=== PATIENT | female | born 1930 | race Caucasian/White ===

== ENCOUNTER 2018-01-23 21:34 | Inpatient (IN) | payer MEDICARE ==
[~2018-01-23] VITALS: Ht 162.6 cm; Wt 50.0 kg
--- NOTE | ~2018-01-23 | PN ---
PATIENT:MARCE HASSAN MEDICAL RECORD: [id number] LOCATION:TIARRA WernerJosé ManuelTim ADMISSION DATE: 01/24/18 PROGRESS NOTE DATE OF SERVICE: 02/01/2018 SUBJECTIVE: The patient's case was discussed with staff. She has no new complaint. OBJECTIVE: The patient is in good behavioral control with limited insight about her condition. She does tolerate her medicines well. ASSESSMENT: No change in diagnoses. PLAN: The patient slept 11 hours last night. I am going to hold her trazodone or rather discontinue it since clearly she is sleeping more than I would like. She does not appear sleepy today. Her long-term prognosis is guarded. TRANSINT:[id number] Voice Confirmation ID: [id number] DOCUMENT ID: [id number] ANKIT DIAZ MD at 1203 CC: [id number] DICTATION DATE: 02/01/18 1332 BEFORE AND AFTER SCHOOL DAYCARE WORKER: 02/01/18 1355 ADM IN [place] [id number] [place] [address]
--- NOTE | ~2018-01-23 | PN ---
PATIENT:MARCE HASSAN MEDICAL RECORD: [id number] LOCATION:TIARRA Amin112 ADMISSION DATE: 01/24/18 PROGRESS NOTE DATE OF SERVICE: 02/07/2018 SUBJECTIVE: The patient's case was discussed with staff. She has no new complaint. OBJECTIVE: The patient is in good behavioral control with limited insight about her condition. She tolerates her medicines well. ASSESSMENT: No change in diagnoses. PLAN: Supportive and educational interventions were made. Fci prognosis is guarded. I anticipate she can be transitioned out of the hospital soon if this level of improvement is maintained. TRANSINT:[id number] Voice Confirmation ID: [id number] DOCUMENT ID: [id number] ANKIT DIAZ MD at 1244 CC: [id number] DICTATION DATE: 02/07/18 1306 FRUIT LOADER: 02/07/18 1312 ADM IN [facility] [address] [place] [id number]
--- NOTE | ~2018-01-23 | PN ---
PATIENT:MARCE HASSAN MEDICAL RECORD: [id number] LOCATION:TIARRA WernerJosé Manuel112 ADMISSION DATE: 01/24/18 PROGRESS NOTE DATE OF SERVICE: 02/02/2018 SUBJECTIVE: No new complaint is offered. OBJECTIVE: The patient has continued to do well. She is much more affable and engaged with staff and with other patients. On exam, mood is euthymic. Affect is appropriate and cordial. Speech is somewhat tangential. Content of thought is negative for overt psychosis. Sensorium is unchanged. ASSESSMENT: No change in diagnosis. PLAN: 1. Continue all current medication. 2. Continue supportive therapy. TRANSINT:[id number] Voice Confirmation ID: [id number] DOCUMENT ID: [id number] ALFONSO NAJERA III, MD at 0530 CC: [id number] DICTATION DATE: 02/02/18 1152 INVESTIGATION OFFICER: 02/02/18 1258 ADM IN [facility] [address] [place] [address]
--- NOTE | ~2018-01-23 | PN ---
PATIENT:MARCE HASSAN MEDICAL RECORD: [id number] LOCATION:TIARRA Amin112 ADMISSION DATE: 01/24/18 PROGRESS NOTE DATE OF SERVICE: 01/29/2018 SUBJECTIVE: The patient's case was discussed with staff. She has no new complaint. OBJECTIVE: The patient is in good behavioral control with limited insight about her condition. She generally tolerates her medicines well. Eye contact is poor. Concentration is poor. ASSESSMENT: Senile dementia of the Alzheimer's type with behavioral disturbances. PLAN: The patient will have her trazodone reduced slightly. She is sleeping adequately and I think part of her difficulties with sleep were related to the lack of a good schedule. In addition to this, I am going to treat her with a low dose of Namenda for its memory enhancing properties. Her long-term prognosis is guarded. TRANSINT:[id number] Voice Confirmation ID: [id number] DOCUMENT ID: [id number] ANKIT DIAZ MD at 1509 CC: [id number] DICTATION DATE: 01/29/18 1346 LAB CLERK: 01/29/18 1514 ADM IN [place] [address] [place] [id number]
--- NOTE | ~2018-01-23 | PN ---
PATIENT:MARCE HASSAN MEDICAL RECORD: [id number] LOCATION:AlphonsoJosé ManuelJENISE Amin112 ADMISSION DATE: 01/24/18 PROGRESS NOTE DATE OF SERVICE: 01/25/2018 SUBJECTIVE: The patient's case was discussed with staff. She has no new complaint. OBJECTIVE: The patient was quite agitated last night and required p.r.n. medication. She is not eating very well. ASSESSMENT: No change in diagnoses. PLAN: I am going to taper the patient off her Celexa. I am going to reduce the dose to 10 mg a day today and in a couple of days will just discontinue. I am unsure if I am going to start her on another antidepressant, but it certainly is possible. For her agitated behavior, I am going to start her on a low dose of Trilafon, which will also assist with her thought disorganization. Both supportive and educational interventions have been made. Her long-term prognosis is guarded. TRANSINT:[id number] Voice Confirmation ID: [id number] DOCUMENT ID: [id number] ANKIT DIAZ MD at 0927 CC: [id number] DICTATION DATE: 01/25/18 1207 WASH HELPER: 01/25/18 1505 ADM IN [place] [id number] [place] [address]
--- NOTE | ~2018-01-23 | DS ---
PATIENT:MARCE HASSAN :[birth year] MEDICAL RECORD: [id number] DISCHARGE SUMMARY ADMISSION DATE: 01/24/18 DISCHARGE DATE: 02/14/18 IDENTIFYING DATA: The patient is 87 years old and she was admitted to the hospital on a voluntary basis secondary to confusion. The patient lives in a local fci where she has been paranoid and delusional along with confused. She had little or no recollection of this and frankly was not providing much in the way of useful history, but it was clear that this was not deliberated, she was just confused. She had been accusing others of hitting her and yelling at her. There was no evidence of this and there was nothing specific that could be addressed. She apparently had been wandering into other rooms at the fci and had a number of bizarre delusions regarding the nursing staff and children. She was quite agitated and displayed a high degree of distress with no specific details that could be addressed. HOSPITAL COURSE: The patient was admitted to the hospital and fully evaluated from both a medical, psychological, and social standpoint. She was treated with memory enhancing and mood stabilizing as well as low dose of an antipsychotic medication. She did show improvement through the course of the hospitalization, was much calmer, but not sedated. She was not delusional, but there was no change in her level of cognitive impairment. She was subsequently transitioned back to the fci. DISCHARGE DIAGNOSES: AXIS I: Senile dementia of the Alzheimer's type with behavioral disturbances. AXIS II: None. AXIS III: Hypertension, cardiac arrhythmia, hyperlipidemia, hypothyroidism, history of colon cancer and hypertension. AXIS IV: Moderate stressors. AXIS V: Global assessment of functioning is 30. PLAN: At the time of discharge, the patient was in good behavioral control and had no evidence of acute or direct dangerousness to herself or others. She was tolerating her medications well. Followup is to be with her primary care fci physician. TRANSINT:[id number] Voice Confirmation ID: [id number] DOCUMENT ID: [id number] ANKIT DIAZ MD at 1312 CC: [id number] DICTATION DATE: 03/08/18 1346 RIVET MACHINE OPERATOR: 03/08/18 1433 DIS IN 02/14/18 [place] [id number] [place], [place] [id number]
--- NOTE | ~2018-01-23 | PN ---
PATIENT:MARCE HASSAN MEDICAL RECORD: [id number] LOCATION:TIARRA WernerJosé ManuelTim ADMISSION DATE: 01/24/18 PROGRESS NOTE DATE OF SERVICE: 02/06/2018 SUBJECTIVE: The patient's case was discussed with staff. She has no new complaint. OBJECTIVE: The patient is partially oriented. She has been fairly agitated today but not openly aggressive. The agitation apparently has something to do with her believing that people are trying to steal her money. There is no real evidence to this effect, and when evidence is given that would contradict her conclusion, she becomes angry. ASSESSMENT: No change in diagnoses. PLAN: The patient has worsened in the past 2 days. I am going to increase her dose of Trilafon, which she is being used to treat her underlying delusional, psychotic symptoms. Her long-term prognosis is guarded. TRANSINT:[id number] Voice Confirmation ID: [id number] DOCUMENT ID: [id number] ANKIT DIAZ MD at 1301 CC: [id number] DICTATION DATE: 02/06/18 1328 SHELLFISH SORTER: 02/06/18 1352 ADM IN [facility] [address] [place] [address]
--- NOTE | ~2018-01-23 | PN ---
PATIENT:MARCE HASSAN MEDICAL RECORD: [id number] LOCATION:TIARRA Amin112 ADMISSION DATE: 01/24/18 PROGRESS NOTE DATE OF SERVICE: 02/14/2018 SUBJECTIVE: The patient's case was discussed with staff. She has no new complaint. OBJECTIVE: The patient is in good behavioral control with limited insight about her condition. She tolerates her medicines well. Eye contact is fair. ASSESSMENT: No change in diagnoses. PLAN: Brief supportive and educational interventions were made. Long-term prognosis is guarded. TRANSINT:[id number] Voice Confirmation ID: [id number] DOCUMENT ID: [id number] ANKIT DIAZ MD at 1332 CC: [id number] DICTATION DATE: 02/14/18 1247 NURSING TECHNICIAN: 02/14/18 1354 DIS IN 02/14/18 [facility] [address] [place] [address]
--- NOTE | ~2018-01-23 | PN ---
PATIENT:MARCE HASSAN MEDICAL RECORD: [id number] LOCATION:TIARRA AminTim ADMISSION DATE: 01/24/18 PROGRESS NOTE DATE OF SERVICE: 01/27/2018 SUBJECTIVE: The patient's case was discussed with staff. She has no new complaint. OBJECTIVE: The patient is in good behavioral control with limited insight about her condition. She has not been actively aggressive. ASSESSMENT: No change in diagnoses. PLAN: Current medicines have been reviewed and will be maintained. Her Celexa is going to be discontinued secondary to a concern about potential side effects. I am going to start her on a low dose of Trilafon, a low dose of trazodone to assist with sleep consolidation. TRANSINT:[id number] Voice Confirmation ID: [id number] DOCUMENT ID: [id number] ANKIT DIAZ MD at 1341 CC: [id number] DICTATION DATE: 01/27/18 0930 POLYMER MATERIALS CONSULTANT: 01/27/18 1443 ADM IN [place] [id number] [place] [address]
--- NOTE | ~2018-01-23 | PN ---
PATIENT:MARCE HASSAN MEDICAL RECORD: [id number] LOCATION:TIARRA AminTim ADMISSION DATE: 01/24/18 PROGRESS NOTE DATE OF SERVICE: 02/08/2018 SUBJECTIVE: The patient's case was discussed with staff. She has no new complaint. OBJECTIVE: The patient is in good behavioral control with limited insight about her condition. She generally tolerates her medicines well. ASSESSMENT: No change in diagnoses. PLAN: Current medicines and therapies have been reviewed and will be maintained. Long-term prognosis is guarded. TRANSINT:[id number] Voice Confirmation ID: [id number] DOCUMENT ID: [id number] ANKIT DIAZ MD at 1159 CC: [id number] DICTATION DATE: 02/08/18 1253 DEAF INTERPRETER: 02/08/18 1258 ADM IN [place] [address] [place] [address]
--- NOTE | ~2018-01-23 | PN ---
PATIENT:MARCE HASSAN MEDICAL RECORD: [id number] LOCATION:TIARRA WernerJosé ManuelTim ADMISSION DATE: 01/24/18 PROGRESS NOTE DATE OF SERVICE: 02/10/2018 SUBJECTIVE: The patient's case was discussed with staff. She has no new complaint. OBJECTIVE: The patient is in good behavioral control with limited insight about her condition. She tolerates her medicines well. Eye contact is fair. ASSESSMENT: No change in diagnoses. PLAN: The patient had a little bit of anxiety and has been worried at times. I am going to observe this a little bit. I am reluctant to start her on any kind of an anxiolytic medication. I do anticipate that if additional pharmacologic therapy is decided against that she would be ready and appropriate for discharge in a couple of days. TRANSINT:[id number] Voice Confirmation ID: [id number] DOCUMENT ID: [id number] ANKIT DIAZ MD at 1101 CC: [id number] DICTATION DATE: 02/10/18 1139 CLAY DRY PRESS MIXER OPERATOR: 02/10/18 2250 ADM IN [place] [address] [place] [address]
--- NOTE | ~2018-01-23 | PN ---
PATIENT:MARCE HASSAN MEDICAL RECORD: [id number] LOCATION:TIARRA WernerJosé Manuel112 ADMISSION DATE: 01/24/18 PROGRESS NOTE DATE OF SERVICE: 02/11/2018 SUBJECTIVE: The patient's case was discussed with staff. She has no new complaint. OBJECTIVE: The patient denies intent to harm herself or others. She generally tolerates her medicines well. She has had some paranoid delusional thought content, which she does not display to me during my brief interaction. ASSESSMENT: No change in diagnoses. PLAN: The patient may well be worsening. The acute change, which I think is reliably reported of course, is possibly due to a urinary tract infection. I plan to order a urinalysis and observe the patient. I had anticipated transitioning her out of the hospital tomorrow, but I think I will delay that by at least 24 hours. TRANSINT:[id number] Voice Confirmation ID: [id number] DOCUMENT ID: [id number] ANKIT DIAZ MD at 1406 CC: [id number] DICTATION DATE: 02/11/18 1125 COLD MEAT COOK: 02/11/18 1432 ADM IN [facility] [address] [place] [address]
--- NOTE | ~2018-01-23 | PSY ---
PATIENT NAME:MARCE HASSAN MEDICAL RECORD: [id number] : [birth year] LOCATION:TIARRA Armstrong3 ADMISSION DATE: 01/24/18 ACCOUNT: [id number] PSYCHIATRIC EVALUATION DATE OF EVALUATION: 01/24/18 IDENTIFYING DATA: The patient is 87 years old and she is admitted to the hospital on a voluntary basis. CHIEF COMPLAINT: Confusion. HISTORY OF PRESENT ILLNESS: The patient lives in a local assisted. Apparently, she has been quite confused, paranoid, and even delusional. The patient has little or no recollection of this and frankly is not very useful in providing history that is helpful. She apparently is accusing others of hitting her and then yelling. She is wandering into other rooms. She has a number of bizarre delusions regarding the nursing staff and children there. She is generally quite confused and agitated. PAST MEDICAL HISTORY: Significant for hypertension, congestive heart failure, cardiac arrhythmia, coronary artery disease, and hyperlipidemia. She has also had a pulmonary embolism and an appendectomy. PAST PSYCHIATRIC HISTORY: Significant for an established diagnosis of dementia and a history of anxiety and depression. History is listed, but there are no details about the severity, frequency, or treatment and she really cannot provide anything in the way of useful information because of her impairment. FAMILY HISTORY: Unknown. ALLERGIES: AMIODARONE, MORPHINE, AND THE TUBERCULIN SKIN TEST. CURRENT MEDICATIONS: Include Protonix, Synthroid, Tylenol with codeine, Phenergan, MiraLax, Colace, Celexa, Coumadin, Lanoxin, Lasix, Lopressor, meclizine, lisinopril, and Lipitor. SOCIAL HISTORY: The patient is a retired nurse. She is single, never having and has no children. She denies a history of drug or alcohol abuse. MENTAL STATUS EXAMINATION: The patient is awake, alert, and oriented to person, place, and somewhat to time and situation. Her mood is flat. Her affect is constricted. Thought processes are disorganized. Memory, concentration, and abstraction abilities are at least moderately impaired and she denies any active intent to harm herself or others as well as overt psychotic symptoms. ASSETS: Supportive family members. LIABILITIES: Limited insight. DIAGNOSTIC IMPRESSION: AXIS I: Senile dementia of the Alzheimer's type with behavioral disturbances. AXIS II: None. AXIS III: Hypertension, cardiac arrhythmia, hyperlipidemia, hypothyroidism, history of colon cancer, and hypertension. AXIS IV: Moderate stressors. AXIS V: Global assessment of functioning is 25. PLAN: At this time, the patient will be admitted to the hospital for a comprehensive medical, psychological, and social evaluation. She will be treated with both mood stabilizing and memory enhancing medications. Her long-term prognosis is guarded. TRANSINT:[id number] Voice Confirmation ID: [id number] DOCUMENT ID: [id number] ANKIT DIAZ MD at 1159 CC: [id number] DICTATION DATE: 01/24/18 1647 PROFESSOR OF ENVIRONMENTAL ENGINEERING: 01/24/18 1709 ADM IN [facility] [address] [place] [id number]
--- NOTE | ~2018-01-23 | PN ---
PATIENT:MARCE HASSAN MEDICAL RECORD: [id number] LOCATION:TIARRA Amin112 ADMISSION DATE: 01/24/18 PROGRESS NOTE DATE OF SERVICE: 02/09/2018 SUBJECTIVE: The patient's case was discussed with staff. She has no new complaint. OBJECTIVE: The patient denies intent to harm herself or others. She generally tolerates her medicines well. Eye contact is poor. ASSESSMENT: No change in diagnoses. PLAN: Supportive and educational interventions were made. Penitentiary prognosis is guarded. I anticipate the patient can be transitioned out of the hospital soon if this level of improvement is maintained. TRANSINT:[id number] Voice Confirmation ID: [id number] DOCUMENT ID: [id number] ANKIT DIAZ MD at 2006 CC: [id number] DICTATION DATE: 02/09/18 1204 ELECTRIC STOVE INSTALLER: 02/09/18 1227 ADM IN [place] [id number] [place] [id number]
--- NOTE | ~2018-01-23 | PN ---
PATIENT:MARCE HASSAN MEDICAL RECORD: [id number] LOCATION:AlphonsoJosé ManuelJENISE Amin112 ADMISSION DATE: 01/24/18 PROGRESS NOTE DATE OF SERVICE: 02/13/2018 SUBJECTIVE: The patient's case was discussed with staff. She has no new complaint. OBJECTIVE: The patient is in good behavioral control with limited insight about her condition. She has not been paranoid or aggressive today. ASSESSMENT: No change in diagnoses. PLAN: Brief supportive and educational interventions were made. Skilled Nursing prognosis is guarded. I anticipate she can be transitioned out of the hospital today. TRANSINT:[id number] Voice Confirmation ID: [id number] DOCUMENT ID: [id number] ANKIT DIAZ MD at 1308 CC: [id number] DICTATION DATE: 02/13/18 1250 JUNIOR SALES ASSISTANT: 02/13/18 1300 ADM IN [facility] [address] [place] [address]
--- NOTE | ~2018-01-23 | PN ---
PATIENT:MARCE HASSAN MEDICAL RECORD: [id number] LOCATION:TIARRA WernerJosé Manuel112 ADMISSION DATE: 01/24/18 PROGRESS NOTE DATE OF SERVICE: 01/31/2018 SUBJECTIVE: The patient's case was discussed with staff. She has no new complaint. OBJECTIVE: The patient denies intent to harm herself or others. She generally tolerates her medicines well. Eye contact is fair. ASSESSMENT: No change in diagnoses. PLAN: The patient's established problem of agitation is significantly better. Her long-term prognosis is guarded. Current medicines will be maintained along with current therapies. I would anticipate she can be transitioned out of the hospital soon if this level of improvement is maintained. TRANSINT:[id number] Voice Confirmation ID: [id number] DOCUMENT ID: [id number] ANKIT DIAZ MD at 1327 CC: [id number] DICTATION DATE: 01/31/18 1259 DIRECTOR OF INVESTIGATIONS: 01/31/18 1328 ADM IN [facility] [address] [place] [id number]
--- NOTE | ~2018-01-23 | PN ---
PATIENT:MARCE HASSAN MEDICAL RECORD: [id number] LOCATION:AlphonsoMARCYKathy Amin112 ADMISSION DATE: 01/24/18 PROGRESS NOTE DATE OF SERVICE: 01/30/2018 SUBJECTIVE: The patient's case was discussed with staff. She has no new complaint. OBJECTIVE: The patient denies intent to harm herself or others. She generally tolerates her medicines well. ASSESSMENT: No change in diagnoses. PLAN: Current medicines have been reviewed and will be maintained. Long-term prognosis is guarded. Brief supportive and educational interventions were made. TRANSINT:[id number] Voice Confirmation ID: [id number] DOCUMENT ID: [id number] ANKIT DIAZ MD at 1249 CC: [id number] DICTATION DATE: 01/30/18 1511 BARGE MASTER: 01/30/18 1541 ADM IN [place] [address] [place] [address]
--- NOTE | ~2018-01-23 | PN ---
PATIENT:MARCE HASSAN MEDICAL RECORD: [id number] LOCATION:TIARRA WernerJosé Manuel112 ADMISSION DATE: 01/24/18 PROGRESS NOTE DATE OF SERVICE: 02/12/2018 SUBJECTIVE: The patient's case was discussed with staff. She has no new complaint. OBJECTIVE: The patient denies intent to harm herself or others. She generally tolerates her medicines well. She is not paranoid today. She is clearly impaired cognitively, but she has a euthymic mood. Her urinalysis shows very minimal evidence of infection with just a few scattered bacteria and trace of leukocyte esterase. I do not think I would treat her at this time for UTI and I would anticipate she can be transitioned out of the hospital soon. ASSESSMENT: No change in diagnoses. PLAN: The patient will be discharged in 1 or 2 days, pending final arrangements with her placement. TRANSINT:[id number] Voice Confirmation ID: [id number] DOCUMENT ID: [id number] ANKIT DIAZ MD at 1236 CC: [id number] DICTATION DATE: 02/12/18 1427 CLOTH DOFFER: 02/12/18 1433 ADM IN [facility] [address] [place] [id number]
--- NOTE | ~2018-01-23 | PN ---
PATIENT:MARCE HASSAN MEDICAL RECORD: [id number] LOCATION:OSIRISKathy AlphonsoJosé Manuel112 ADMISSION DATE: 01/24/18 PROGRESS NOTE DATE OF SERVICE: 02/05/2018 SUBJECTIVE: The patient's case was discussed with staff. She has no new complaint. OBJECTIVE: The patient is in good behavioral control with limited insight about her condition. She does tolerate her medicines well. ASSESSMENT: No change in diagnoses. PLAN: The patient will be treated with a higher dose of Namenda 5 mg twice daily. She has not been aggressive and I would anticipate she can be transitioned out of the hospital soon if this level of improvement is maintained. TRANSINT:[id number] Voice Confirmation ID: [id number] DOCUMENT ID: [id number] ANKIT DIAZ MD at 1019 CC: [id number] DICTATION DATE: 02/05/18 1241 TACK CUTTER: 02/05/18 1310 ADM IN [place] [address] [place] [address]
--- NOTE | ~2018-01-23 | OP ---
PATIENT NAME: MARCE HASSAN MEDICAL RECORD: [id number] :[birth year] LOCATION:TIARRA Armstrong3 ADMISSION DATE:01/24/18 SURGEON: ALFONSO NAJERA III, MD DATE OF OPERATION: 01/26/2018 SUBJECTIVE: The patient does not offer a new complaint. INDICATIONS: The patient is very pleasant and talkative. 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 Staff report that she has been very compliant and easy to manage. On exam, mood is euthymic. Affect is very pleasant and socially appropriate. Speech is somewhat tangential and highly circumstantial. Content of thought is negative for overt psychosis. Sensorium shows no change. ASSESSMENT: No change in diagnosis. PLAN: 1. Maintain current medication. 2. Continue supportive therapy. TRANSINT:[id number] Voice Confirmation ID: [id number] DOCUMENT ID: [id number] ALFONSO NAJERA III, MD at 0959 CC: [id number] DICTATION DATE: 01/26/18 1112 LOFT WORKER APPRENTICE: 01/26/18 1451 ADM IN [facility] [address] [place] [address]
[2018-01-23 22:50] LABS: BASOPHILS 0 % (0-2); EOSINOPHILS 2.3 % (0-7); HEMATOCRIT 37.1 % (36.0-48.0); HEMOGLOBIN 11.8 g/dL (12-16); IMMATURE GRANULOCYTES 0.2 % (0-5); LYMPHOCYTES 24.4 % (15-50); MCH 28.9 pg (26.0-34.0); MCHC 31.8 g/dL (31.0-37.0); MCV 90.9 fL (80.0-100.0); MEAN PLATELET VOLUME 9.2 fL (7.4-10.4); MONOCYTES 10.7 % (2-11); NEUTROPHILS 62.4 % (40-80); PLATELET COUNT 197 10x3/uL (130-400); RBC 4.08 10x6/uL (4.00-5.40); RDW 15.8 % (11.5-14.5); WBC 5.1 10x3/uL (4.8-10.8)
[2018-01-23 22:55] LABS: APTT 43.1 SECONDS (22.8-39.4); INR 2.31 (0.85-1.17); PROTIME 24.7 SECONDS (11.6-15.0)
[2018-01-23 23:02] LABS: ALBUMIN 2.8 g/dL (3.4-5.0); ALKALINE PHOSPHATASE 116 U/L (46-116); ALT (SGPT) 24 U/L (10-68); CALC OSMOLALITY 280 mosm/kg (275-300); CALCIUM 8.8 mg/dL (8.5-10.1); CARBON DIOXIDE 30.3 mmol/L (21.0-32.0); CHLORIDE - SERUM 108 mmol/L (98-107); CREATININE - SERUM 0.7 mg/dL (0.6-1.3); GLUCOSE 76 mg/dL (74-106); POTASSIUM - SERUM 3.7 mmol/L (3.5-5.1); PROTEIN - SERUM 6.7 g/dL (6.4-8.2); SODIUM 141 mmol/L (136-145); UREA NITROGEN 15 mg/dL (7-18); eGFR NON AFRICAN AMERICAN 83 mL/min (90-120)
[2018-01-23 23:14] LABS: CKMB 0.7 U/L (0.0-3.6); CREATINE KINASE 29 UL (21-215); TROPONIN-I < 0.017 ng/mL (0.000-0.060)
[2018-01-23 23:28] LABS: APPEARANCE CLEAR (CLEAR); BILIRUBIN NEGATIVE (NEGATIVE); COLOR YELLOW (YELLOW); GLUCOSE 50 mg/dL (NEGATIVE); KETONE NEGATIVE (NEGATIVE); NITRITE NEGATIVE (NEGATIVE); PROTEIN NEGATIVE (NEGATIVE); UROBILINOGEN NORMAL (NORMAL)
[2018-01-23 23:29] LABS: BACTERIA FEW /hpf (NONE SEEN); EPITHELIAL CELLS 0-5 /hpf (0-5); RED CELLS - URINE NONE SEEN /hpf (0-5); WHITE CELLS - URINE 0-5 /hpf (0-5)
[2018-01-24] MEDS ORDERED: PROTONIX40 MG PO (03:18)
[2018-01-24] MEDS ORDERED: TYLENOL W/CODEI1 TAB PO (03:19)
[2018-01-24] MEDS ORDERED: CELEXA10 MG PO (03:19)
[2018-01-24] MEDS ORDERED: SYNTHROID50 MCG PO (03:20)
[2018-01-24] MEDS ORDERED: COUMADIN3 MG PO ×2 (03:21→10:42)
[2018-01-24] MEDS ORDERED: ELIQUIS2.5 MG PO (03:23)
[2018-01-24] MEDS ORDERED: LANOXIN125 MCG PO ×2 (03:24→10:44)
[2018-01-24] MEDS ORDERED: PHENERGAN25 M1 PO (03:26)
[2018-01-24] MEDS ORDERED: MIRALAX527 GM PO (03:42)
[2018-01-24] MEDS ORDERED: LASIX20 MG PO (03:43)
[2018-01-24] MEDS ORDERED: METOPROLOL TART50 MG PO ×2 (03:43→10:48)
[2018-01-24] MEDS ORDERED: COLACE100 MG PO (03:44)
[2018-01-24] MEDS ORDERED: MECLIZINE HCL25 MG PO ×2 (03:44→10:49)
[2018-01-24] MEDS ORDERED: LIPITOR20 MG PO ×2 (03:45→10:54)
[2018-01-24 07:54] LABS: CHOL - HDL RATIO 1.8 ratio (2.3-4.1); LDL-HDL RATIO 0.7 ratio (1.5-3.5); THYROID STIMULATING HORMONE 1.52 uIU/mL (0.36-3.74)
[2018-01-24 07:57] LABS: DIGOXIN 0.03 ng/mL (0.90-2.00)
[2018-01-24 09:39] VITALS: BP 147/84
[2018-01-24] MEDS ORDERED: CELEXA20 MG PO (10:40)
[2018-01-24] MEDS ORDERED: FUROSEMIDE20 MG PO (10:46)
[2018-01-24] MEDS ORDERED: LISINOPRIL5 MG PO (10:51)
[2018-01-24 19:00] VITALS: BP 153/85
[2018-01-25 07:37] LABS: RAPID PLASMA REAGIN Non Reactive (Non Reactive)
[2018-01-25 08:11] VITALS: BP 112/76
[2018-01-25 08:17] LABS: FOLATE (FOLIC ACID) - SERUM >20.0 ng/mL (>3.0)
[2018-01-25 09:18] LABS: VITAMIN D 25 HYDROXY 26.3 ng/mL (30.0-100.0)
[2018-01-25 19:06] VITALS: BP 133/80
[2018-01-26 07:28] LABS: INR 3.15 (0.85-1.17); PROTIME 31.6 SECONDS (11.6-15.0)
[2018-01-26 10:04] VITALS: BP 140/83
[2018-01-26 19:34] VITALS: BP 124/60
[2018-01-27 06:09] LABS: INR 2.71 (0.85-1.17); PROTIME 28.1 SECONDS (11.6-15.0)
[2018-01-27 09:42] VITALS: BP 111/84
[2018-01-27 20:45] VITALS: BP 112/81
[2018-01-28 07:00] VITALS: BP 138/76
[2018-01-28 19:35] VITALS: BP 133/71
[2018-01-29 07:40] VITALS: BP 128/72
[2018-01-29 18:37] VITALS: BP 144/68
[2018-01-30 07:32] LABS: INR 1.46 (0.85-1.17); PROTIME 17.2 SECONDS (11.6-15.0)
[2018-01-30 10:20] VITALS: BP 142/70
[2018-01-30 22:23] VITALS: BP 131/84
[2018-01-31 09:45] VITALS: BP 157/85
[2018-01-31 20:04] VITALS: BP 149/86
[2018-01-31 20:05] VITALS: BP 149/86
[2018-02-01 08:42] VITALS: BP 159/95
[2018-02-01 19:29] VITALS: BP 148/78
[2018-02-02 06:31] LABS: INR 2.09 (0.85-1.17); PROTIME 22.9 SECONDS (11.6-15.0)
[2018-02-02 08:34] VITALS: BP 158/90
[2018-02-02 19:47] VITALS: BP 160/67
[2018-02-03 09:10] VITALS: BP 147/92
[2018-02-03 19:18] VITALS: BP 131/70
[2018-02-04 07:00] VITALS: BP 129/77
[2018-02-04 18:56] VITALS: BP 138/80
[2018-02-05 07:00] VITALS: BP 143/82
[2018-02-05 19:43] VITALS: BP 143/86
[2018-02-06 07:14] LABS: INR 2.66 (0.85-1.17); PROTIME 27.6 SECONDS (11.6-15.0)
[2018-02-06 09:30] VITALS: BP 172/102
[2018-02-06 21:16] VITALS: BP 129/91
[2018-02-07 10:40] VITALS: BP 147/89
[2018-02-07 19:45] VITALS: BP 131/53
[2018-02-08 09:06] VITALS: BP 141/85
[2018-02-08 21:12] VITALS: BP 113/64
[2018-02-09 06:07] LABS: INR 2.35 (0.85-1.17); PROTIME 25.1 SECONDS (11.6-15.0)
[2018-02-09 08:13] VITALS: BP 136/76
[2018-02-09 19:30] VITALS: BP 128/65
[2018-02-10 10:34] VITALS: BP 146/82
[2018-02-10 20:46] VITALS: BP 123/89
[2018-02-11 12:11] LABS: APPEARANCE CLEAR (CLEAR); BILIRUBIN NEGATIVE (NEGATIVE); COLOR YELLOW (YELLOW); GLUCOSE NEGATIVE (NEGATIVE); KETONE NEGATIVE (NEGATIVE); NITRITE NEGATIVE (NEGATIVE); PROTEIN NEGATIVE (NEGATIVE); SPECIFIC GRAVITY 1.015 (1.005-1.020); UROBILINOGEN NORMAL (NORMAL)
[2018-02-11 12:13] LABS: BACTERIA FEW /hpf (NONE SEEN); EPITHELIAL CELLS 0-5 /hpf (0-5); RED CELLS - URINE 0-5 /hpf (0-5); WHITE CELLS - URINE 0-5 /hpf (0-5)
[2018-02-11 18:45] VITALS: BP 108/69
[2018-02-12 07:00] VITALS: BP 155/88
[2018-02-12 07:20] LABS: INR 3.51 (0.85-1.17); PROTIME 34.4 SECONDS (11.6-15.0)
[2018-02-12 11:35] LABS: INR 3.28 (0.85-1.17); PROTIME 32.6 SECONDS (11.6-15.0)
[2018-02-12 20:31] VITALS: BP 150/75
[2018-02-13 06:33] LABS: INR 2.77 (0.85-1.17); PROTIME 28.6 SECONDS (11.6-15.0)
[2018-02-13 09:40] VITALS: BP 133/95
[2018-02-13 10:12] VITALS: Ht 162.6 cm; Wt 50.0 kg
[2018-02-13] MEDS ORDERED: PENTOXIFYLLINE400 MG PO (13:08)
[2018-02-13] MEDS ORDERED: VITAMIN D5000 UNIT PO (13:09)
[2018-02-13] MEDS ORDERED: PERPHENAZINE2 MG PO (13:09)
[2018-02-13] MEDS ORDERED: NAMENDA5 MG PO (13:09)
[2018-02-13 22:01] VITALS: BP 128/106
[2018-02-14 06:48] LABS: INR 2.38 (0.85-1.17); PROTIME 25.3 SECONDS (11.6-15.0)
[2018-02-14 09:05] VITALS: BP 132/33
== END 2018-02-14 15:00 | DRG 57 ==
LOC: D.ER 21:34 → D.PSYCH 01-24 01:54 → D.EDHOLD 01-24 01:54 → D.PSYCH 01-24 02:52
PROVIDERS: Family Medicine; Psychiatry & Neurology Psychiatry
DX: G30.1 Alzheimer's disease with late onset (principal); F02.81 Dementia in other diseases classified elsewhere, unspecified severity, with behavioral disturbance; C78.7 Secondary malignant neoplasm of liver and intrahepatic bile duct; C79.51 Secondary malignant neoplasm of bone; N39.0 Urinary tract infection, site not specified; I11.0 Hypertensive heart disease with heart failure; I50.9 Heart failure, unspecified; E78.5 Hyperlipidemia, unspecified; E03.9 Hypothyroidism, unspecified; I25.10 Atherosclerotic heart disease of native coronary artery without angina pectoris; I48.91 Unspecified atrial fibrillation; Z79.01 Long term (current) use of anticoagulants; F41.9 Anxiety disorder, unspecified; R26.9 Unspecified abnormalities of gait and mobility; I73.9 Peripheral vascular disease, unspecified; E55.9 Vitamin D deficiency, unspecified; Z86.73 Personal history of transient ischemic attack (TIA), and cerebral infarction without residual deficits; Z95.0 Presence of cardiac pacemaker; Z85.038 Personal history of other malignant neoplasm of large intestine; Z86.711 Personal history of pulmonary embolism